=== PATIENT | female | born 2000 | race Caucasian/White ===

== ENCOUNTER 2018-04-27 09:15 | Emergency (ER) | payer BC ==
[2018-04-27] MEDS ORDERED: Zofran 4 MG/2 ML VIAL IV ONE (09:54)
[2018-04-27] MEDS ORDERED: TRANDATE 20 MG/5 ML SYRINGE IV ONE ×2 (09:57→10:09)
[2018-04-27] MEDS ORDERED: Sodium Chloride 0.9% 1000 ML 1,000 ML IV SCH (10:00)
[2018-04-27 10:05] LABS: BASOPHIL % 0.3 % (0.0-0.4); Basophil (Absolute #) 0.02 (0-0.4); Eosinophil % 0.8 % (0.00-5.0); Eosinophil (Absolute #) 0.06 (0-0.5); Granulocyte Absolute (ANC) 4.38 (1.4-6.9); Granulocytes % 60.6 % (36.0-66.0); Hematocrit 43.2 % (35-47); Hemoglobin 14.7 gm/dl (12.0-16.0); Lymphocyte (Absolute #) 2.16 (1.0-4.6); Lymphocytes % 29.9 % (24.0-44.0); Mean Cell Volume 86.4 fl (78-100); Mean Corpuscular Hemoglobin 29.4 pg (26-32); Mean Platelet Volume 10.1 fl (6-9.5); Monocyte (Absolute #) 0.61 (0.0-1.3); Monocytes % 8.4 % (0.0-12.0); Platelet Count 286 K/mm3 (150-450); Red Cell Distribution Width 12.6 % (11.5-14.0); White Blood Count 7.2 K/mm3 (4.0-10.5)
[2018-04-27] MEDS ORDERED: Sodium Chloride 0.9% 1000 ML 1,000 ML ONE (10:09)
[2018-04-27] MEDS ORDERED: Zofran 4 MG/2 ML VIAL ONE (10:09)
[2018-04-27 10:21] LABS: ANION GAP 15.5 MEQ/L (5-15); BLOOD UREA NITROGEN 12 mg/dL (7-17); CHLORIDE 105 mmol/L (98-107); Calcium 9.7 mg/dL (8.4-10.2); Carbon Dioxide 25 mmol/L (22-30); Creatinine 1 0.61 mg/dL (0.52-1.04); Glucose 101 mg/dL (74-106); SODIUM 141 mmol/L (137-145)
[2018-04-27 10:25] LABS: Appearance SLIGHTLY CLOUDY (CLEAR); Bilirubin NEGATIVE (NEGATIVE); Blood NEGATIVE Ery/ul (0-5); Glucose NEGATIVE (NEGATIVE); Ketones NEGATIVE (NEGATIVE); Leukocyte Esterase NEGATIVE (NEGATIVE); Nitrite NEGATIVE (NEGATIVE); Protein,Urine Dip NEGATIVE (Negative); Specific Gravity 1.028 (1.005-1.025); Urobilinogen NEGATIVE mg/dL (0-1)
[2018-04-27] MEDS ORDERED: MORPHINE SULFATE 4 MG INJ IV ONE (10:35)
--- NOTE | 2018-04-27 10:35 | ERPHSYRPT ---
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 When I was vomiting this morning, I had a terrible pain go through my head and I just do not feel right, I am having a hard time thinking." Triage Nursing Assessment: Pt alert and oriented X 3, skin pwd. PT speech is delayed, able to speak in clear full sentences,. PT ambulates with upright steady gait. Physician History: PATIENT WITH A HISTORY OF PITUITARY TUMOR DIAGNOSIS 3 MONTHS AGO, HAS NAUSEA WITH EMESIS WEEKLY, HAD ONSET OF FRONTAL HEADACHE ASSOCIATED WITH NAUSEA TODAY, DENIES SLURRED SPEECH, BLURRED VISION, NUMBNESS, TINGLING OR FOCAL WEAKNESS IN EXTREMITIES. Timing/Duration: today Quality: throbbing Head Pain Location: frontal Severity of Pain-Max: moderate Severity of Pain-Current: moderate Recent Head Trauma: occasional headaches Modifying Factors: Improves With: movement Associated Symptoms: nausea/vomiting Previous symptoms: same symptoms as today Allergies/Adverse Reactions: No Known Drug Allergies Allergy (Verified 04/27/18 09:32) Hx Tetanus, Diphtheria Vaccination/Date Given: Yes Hx Influenza Vaccination/Date Given: No Hx Pneumococcal Vaccination/Date Given: No Immunizations Up to Date: Yes - Review of Systems Constitutional: No Fever, No Chills Eyes: No Symptoms Ears, Nose, & Throat: No Symptoms Respiratory: No Cough, No Dyspnea Cardiac: No Chest Pain, No Edema, No Syncope Abdominal/Gastrointestinal: Nausea, No Abdominal Pain, No Vomiting, No Diarrhea Genitourinary Symptoms: No Dysuria Musculoskeletal: No Back Pain, No Neck Pain Skin: No Rash Neurological: Headache, No Dizziness, No Focal Weakness, No Sensory Changes Psychological: No Symptoms Endocrine: No Symptoms All Other Systems: Reviewed and Negative - Past Medical History Neurological History: No Pertinent History ENT History: No Pertinent History Respiratory History: No Pertinent History Endocrine Medical History: No Pertinent History Musculoskeletal History: No Pertinent History GI Medical History: No Pertinent History History: No Pertinent History Psycho-Social History: No Pertinent History Female Reproductive Disorders: No Pertinent History Other Medical History: pituitary tumor. PCOS - Past Surgical History Past Surgical History: Yes Neuro Surgical History: No Pertinent History Cardiac: No Pertinent History Gastrointestinal: No Pertinent History Genitourinary: No Pertinent History Musculoskeletal: No Pertinent History Female Surgical History: No Pertinent History Other Surgical History: Hand surgery on the 5th finger. - Social History Smoking Status: Current some day smoker How long have you smoked: years Exposure to second hand smoke: No Drug Use: none Patient Lives Alone: No - Female History Hx Last Menstrual Period: 04/12/2018 Hx Now: (UNKNOWN) - Nursing Vital Signs Nursing Vital Signs: Initial Vital Signs Temperature 9.6 F 04/27/18 09:24 Pulse Rate 108 H 04/27/18 09:24 Respiratory Rate 18 04/27/18 09:24 Blood Pressure 177/112 04/27/18 09:24 O2 Sat by Pulse Oximetry 100 04/27/18 09:24 Pain Scale Pain Intensity 4 - Physical Exam General Appearance: no apparent distress Eye Exam: PERRL/EOMI Ears, Nose, Throat Exam: normal ENT inspection, moist mucous membranes Neck Exam: normal inspection, supple, full range of motion, No meningismus Respiratory Exam: normal breath sounds, lungs clear Cardiovascular Exam: regular rate/rhythm, normal heart sounds Gastrointestinal/Abdominal Exam: soft, normal bowel sounds, No tenderness, No distention Back Exam: normal inspection, normal range of motion Mental Status Exam: alert, oriented x 3, cooperative software integration developer Exam: normal speech, PERRL, No facial droop Coordination/Gait Exam: normal cerebellar function Motor/Sensory Exam: no motor deficit, no sensory deficit Skin Exam: normal color, warm, dry, No rash SpO2: 99 Oxygen Delivery: Room Air - CT Exams Head CT Interpretation: Discussed w/radiologist (STABLE RIGHT MAXILLARY SINUS POLY/ RETENTION CYST. REMAINING CT HEAD WITHOUT CONTRAST EXAM IS NORMAL) Ordered Tests: Active Orders 24 hr Category Date Time Status Vp Information Technology STAT Care 04/27/18 09:56 Active Clean Catch Urine Specimen STAT Care 04/27/18 09:54 Active IV Insertion STAT Care 04/27/18 09:54 Active HEAD WITHOUT CONTRAST [CT] Stat Exams 04/27/18 11:22 Completed BMP Stat Lab 04/27/18 09:50 Completed CBC W DIFF Stat Lab 04/27/18 09:50 Completed HCG,QUALITATIVE URINE Stat Lab 04/27/18 10:06 Completed UA W/RFX UR CULTURE Stat Lab 04/27/18 10:06 Completed Medication Summary Generic Name Dose Route Start Last Admin Trade Name Freq PRN Reason Stop Dose Admin Sodium Chloride 1,000 mls @ 100 mls/hr 04/27/18 10:00 04/27/18 10:13 Sodium Chloride 0.9% 1000 Ml IV 05/27/18 09:59 100 mls/hr .Q10H KRISTINA Administration Discontinued Medications Generic Name Dose Route Start Last Admin Trade Name Ghulamq PRN Reason Stop Dose Admin Labetalol HCl 10 mg 04/27/18 09:57 04/27/18 10:12 Trandate 20 Mg/5 Ml Syringe IV 04/27/18 09:58 10 mg STAT ONE Administration Labetalol HCl Confirm 04/27/18 10:09 Trandate 20 Mg/5 Ml Syringe Administered 04/27/18 10:10 Dose 20 mg IV .STK-MED ONE Morphine Sulfate 4 mg 04/27/18 10:35 04/27/18 10:51 Morphine Sulfate 4 Mg Inj IV 04/27/18 10:36 4 mg STAT ONE Administration Morphine Sulfate Confirm 04/27/18 10:46 Morphine Sulfate 4 Mg Inj Administered 04/27/18 10:47 Dose 4 mg .ROUTE .STK-MED ONE Ondansetron HCl 4 mg 04/27/18 09:54 04/27/18 10:13 Zofran 4 Mg/2 Ml Vial IV 04/27/18 09:55 4 mg STAT ONE Administration Ondansetron HCl Confirm 04/27/18 10:09 Zofran 4 Mg/2 Ml Vial Administered 04/27/18 10:10 Dose 4 mg .ROUTE .STK-MED ONE Lab/Rad Data: Laboratory Result Diagrams 04/27/18 09:50 04/27/18 09:50 Laboratory Results 04/27/18 04/27/18 04/27/18 Range/Units 10:06 10:06 09:50 WBC (4.0-10.5) K/mm3 RBC (4.1-5.4) M/mm3 Hgb (12.0-16.0) gm/dl Hct (35-47) % MCV (78-100) fl MCH (26-32) pg MCHC (32-36) g/dl RDW (11.5-14.0) % Plt Count (150-450) K/mm3 MPV (6-9.5) fl Gran % (36.0-66.0) % Eos # (Auto) (0-0.5) Absolute Lymphs (auto) (1.0-4.6) Absolute Monos (auto) (0.0-1.3) Lymphocytes % (24.0-44.0) % Monocytes % (0.0-12.0) % Eosinophils % (0.00-5.0) % Basophils % (0.0-0.4) % Absolute Granulocytes (1.4-6.9) Basophils # (0-0.4) Sodium 141 (137-145) mmol/L Potassium 4.0 (3.5-5.1) mmol/L Chloride 105 (98-107) mmol/L Carbon Dioxide 25 (22-30) mmol/L Anion Gap 15.5 H (5-15) MEQ/L BUN 12 (7-17) mg/dL Creatinine 0.61 (0.52-1.04) mg/dL Estimated GFR > 60.0 ML/MIN Glucose 101 (74-106) mg/dL Calcium 9.7 (8.4-10.2) mg/dL Urine Color YELLOW (YELLOW) Urine Appearance SLIGHTLY CLOUDY (CLEAR) Urine pH 6.0 (5-6) Ur Specific Ragan 1.028 (1.005-1.025) Urine Protein NEGATIVE (Negative) Urine Ketones NEGATIVE (NEGATIVE) Urine Blood NEGATIVE (0-5) N[place]um/ul Urine Nitrite NEGATIVE (NEGATIVE) Urine Bilirubin NEGATIVE (NEGATIVE) Urine Urobilinogen NEGATIVE (0-1) mg/dL Ur Leukocyte Esterase NEGATIVE (NEGATIVE) Urine WBC (Auto) 3-5 (0-5) /HPF Urine RBC (Auto) 0-2 (0-2) /HPF U Epithel Cells (Auto) FEW (FEW) /HPF Urine Bacteria (Auto) RARE (NEGATIVE) /HPF Urine Mucus (Auto) SLIGHT (NEGATIVE) /HPF Urine Culture Reflexed NO (NO) Urine Glucose NEGATIVE (NEGATIVE) mg/dL Urine HCG, Qual NEGATIVE (Negative) 04/27/18 Range/Units 09:50 WBC 7.2 (4.0-10.5) K/mm3 RBC 5.00 (4.1-5.4) M/mm3 Hgb 14.7 (12.0-16.0) gm/dl Hct 43.2 (35-47) % MCV 86.4 (78-100) fl MCH 29.4 (26-32) pg MCHC 34.0 (32-36) g/dl RDW 12.6 (11.5-14.0) % Plt Count 286 (150-450) K/mm3 MPV 10.1 H (6-9.5) fl Gran % 60.6 (36.0-66.0) % Eos # (Auto) 0.06 (0-0.5) Absolute Lymphs (auto) 2.16 (1.0-4.6) Absolute Monos (auto) 0.61 (0.0-1.3) Lymphocytes % 29.9 (24.0-44.0) % Monocytes % 8.4 (0.0-12.0) % Eosinophils % 0.8 (0.00-5.0) % Basophils % 0.3 (0.0-0.4) % Absolute Granulocytes 4.38 (1.4-6.9) Basophils # 0.02 (0-0.4) Sodium (137-145) mmol/L Potassium (3.5-5.1) mmol/L Chloride (98-107) mmol/L Carbon Dioxide (22-30) mmol/L Anion Gap (5-15) MEQ/L BUN (7-17) mg/dL Creatinine (0.52-1.04) mg/dL Estimated GFR ML/MIN Glucose (74-106) mg/dL Calcium (8.4-10.2) mg/dL Urine Color (YELLOW) Urine Appearance (CLEAR) Urine pH (5-6) Ur Specific Ragan (1.005-1.025) Urine Protein (Negative) Urine Ketones (NEGATIVE) Urine Blood (0-5) [place]um/ul Urine Nitrite (NEGATIVE) Urine Bilirubin (NEGATIVE) Urine Urobilinogen (0-1) mg/dL Ur Leukocyte Esterase (NEGATIVE) Urine WBC (Auto) (0-5) /HPF Urine RBC (Auto) (0-2) /HPF U Epithel Cells (Auto) (FEW) /HPF Urine Bacteria (Auto) (NEGATIVE) /HPF Urine Mucus (Auto) (NEGATIVE) /HPF Urine Culture Reflexed (NO) Urine Glucose (NEGATIVE) mg/dL Urine HCG, Qual (Negative) - Progress Progress: improved Progress Note: 04/27/18 10:34 IV NORMAL SALINE 100ML/HR, ZOFRAN 4MG, LABETOLOL 10MG IV, MORPHINE 4MG IV 04/27/18 12:46 REVIEW OF MRI BRAIN WITH AND WITHOUT IV CONTRAST 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 ZOFRAN 4MG EVERY 6 HOURS FOR NAUSEA NEEDED. CONSULT YOUR PRIMARY CARE PROVIDER FOR FOLLOWUP IN 1 WEEK. TYLENOL EVERY 4 HOURS FOR PAIN NEEDED. CONSULT YOUR PRIMARY CARE PROVIDER FOR NEUROLOGY REFERRAL FOR EVALUATION OF HEADACHES. Prescriptions: Ondansetron ODT 4 MG [Zofran Odt 4 mg] 4 mg PO Q6H PRN PRN #10 tab.rapdis PRN Reason: Nausea Metoprolol Succinate 25 mg Xl* [Toprol-Xl 25MG Tablets] 12.5 mg PO DAILY #15 tab
[2018-04-27] MEDS ORDERED: MORPHINE SULFATE 4 MG INJ ONE (10:46)
--- NOTE | 2018-04-27 11:48 | XRAY ---
Indication: Mental status change. Lightheadedness. Vomiting. Multiple contiguous axial images obtained through the head without contrast. Comparison: September 26, 2015. Again normal appearing brain parenchyma, ventricles, and bony calvarium. There remains partially visualized 2.4 [employer] right maxillary sinus polyp/retention cyst. Remaining visualized paranasal sinuses and mastoid air cells are clear. Impression: Stable right maxillary sinus polyp/retention cyst. Remaining CT head without contrast exam is normal. CT DI 67.41
[2018-04-27 12:24] VITALS: BP 107/67; PULSE 80
[2018-04-27 12:50] VITALS: O2SAT 99
== END 2018-04-27 13:15 | disposition home or self-care (01) ==
LOC: ED 09:15
DX: I10 Essential (primary) hypertension (principal); R51 Headache; R11.2 Nausea with vomiting, unspecified; D35.2 Benign neoplasm of pituitary gland
CPT/HCPCS: 36000; 36415; 70450; 80048; 81001; 84703; 85025; 93041; 96360; 96361; 96374; 96375; 99284; J2270; J2405